=== PATIENT | female | born 1970 | race Caucasian/White ===

== ENCOUNTER 2022-12-18 11:00 | Outpatient (RCR) | payer OTHER, SELFPAY | END 2023-01-11 10:37 | disposition home or self-care (01) | LOC: HO.PT 11:00 | PROVIDERS: PCP Student in an Organized Health Care Education/Training Program; Visit Provider Student in an Organized Health Care Education/Training Program | DX: R35.0 Frequency of micturition (principal); N94.10 Unspecified dyspareunia | CPT/HCPCS: 97110; 97162; 97535 ==